=== PATIENT | female | born 2000 | race American Indian/Alaskan Native ===

== ENCOUNTER 2019-06-09 23:34 | Emergency (ER) | payer SELFPAY ==
[2019-06-10 04:55] VITALS: BP 112/72
[2019-06-10] MEDS ORDERED: NORCO 5/325 PO ONE (04:55)
[2019-06-10] MEDS ORDERED: NORCO 5/325 ONE (04:59)
[2019-06-10] MEDS ORDERED: XYLOCAINE 1% MPF 5 mL INFILTRATI ONE (05:13)
[2019-06-10] MEDS ORDERED: CLEOCIN PO ONE (05:13)
[2019-06-10] MEDS ORDERED: ZOFRAN ODT PO ONE (05:13)
--- NOTE | 2019-06-10 06:34 | Emergency Department Report ---
Abscess Boil HPI - HPI Chief Complaint: Skin/Abscess/Foreign Body Stated Complaint: SPIDER BITE Time Seen by Provider: 06/10/19 05:20 Duration: 4 Days Location: Lower Extremity (medial right thigh) Severity: Severe History: Yes Pain, Yes Purulent Drainage, Yes Insect Bite, No Fever, No Numbness, No Foreign Body, No Previous History HPI: Patient is a 18-year-old -Serbian female with no past medical history presents to the ED with complaint of acute onset persistent painful swollen erythematous maculopapular rash with purulent discharge on the medial right thigh for the last 4 days. Patient denies dizziness, fever, chills, nausea, vomiting, numbness and tingling on right leg, chest pain or shortness of breath. Home Medications: Previous Rx's Medication Instructions Recorded Last Taken Type Acetaminophen/Codeine [Tylenol 1 tab PO Q6H PRN #15 tab 06/10/19 Unknown Rx /Codeine # 3 tab] Clindamycin [Clindamycin CAP] 300 mg PO Q8HR #60 capsule 06/10/19 Unknown Rx Ibuprofen [Motrin] 800 mg PO Q8HR PRN #24 tablet 06/10/19 Unknown Rx Ondansetron [Zofran Odt] 4 mg PO Q6HR PRN #15 tab.rapdis 06/10/19 Unknown Rx cephALEXin [Keflex] 500 mg PO Q6HR #40 capsule 06/10/19 Unknown Rx Allergies/Adverse Reactions: Allergies Allergy/AdvReac Type Severity Reaction Status Date / Time Sulfa (Sulfonamide Allergy Anaphylaxis Verified 06/10/19 00:01 Antibiotics) ED Review of Systems ROS: Stated complaint: SPIDER BITE Other details as noted in HPI Constitutional: denies: chills, fever Eyes: denies: eye pain, eye discharge, vision change ENT: denies: ear pain, throat pain Respiratory: denies: cough, shortness of breath, wheezing Cardiovascular: denies: chest pain, palpitations Endocrine: no symptoms reported Gastrointestinal: denies: abdominal pain, nausea, diarrhea Genitourinary: denies: urgency, dysuria, discharge Musculoskeletal: arthralgia, other (painful right medial thigh due to erythematous maculopapular rash). denies: back pain, joint swelling Skin: rash (erythematous maculopapular rash on medial right thigh). denies: lesions Neurological: denies: headache, weakness, paresthesias Psychiatric: denies: anxiety, depression Hematological/Lymphatic: denies: easy bleeding, easy bruising ED Past Medical Hx - Past Medical History Previous Medical History?: Yes Hx Asthma: Yes - Surgical History Past Surgical History?: No - Social History Smoking Status: Never Smoker Substance Use Type: None - Medications Home Medications: Home Medications Medication Instructions Recorded Confirmed Last Taken Type Acetaminophen/Codeine [Tylenol 1 tab PO Q6H PRN #15 tab 06/10/19 Unknown Rx /Codeine # 3 tab] Clindamycin [Clindamycin CAP] 300 mg PO Q8HR #60 capsule 06/10/19 Unknown Rx Ibuprofen [Motrin] 800 mg PO Q8HR PRN #24 tablet 06/10/19 Unknown Rx Ondansetron [Zofran Odt] 4 mg PO Q6HR PRN #15 tab.rapdis 06/10/19 Unknown Rx cephALEXin [Keflex] 500 mg PO Q6HR #40 capsule 06/10/19 Unknown Rx ED Abscess Boil Physical Exam - Exam General: Vital signs noted. No distress. Alert and acting appropriately. Front/Back of Body, Lg (Color): 1 - Erythematous maculopapular rash on medial right thigh purulent discharge and tenderness Size: 2 cm Exam: Yes Tenderness, Yes Fluctuance, Yes Surrounding Cellulites/Erythema, Yes Normal Neurologic Exam, Yes Normal Circulation, No Lymphangitis, No Crepitation, No Heart Murmur I & D Note - I & D Note I & D Note: Right medial thigh with 2 cm circumferential erythematous fluctuant rash. Local anethetic: Lidocaine 1% w/o epi, 5 cc. Betadine used to clean the skin. Wound debrided with Scapel blad size # 11. Wound thoroughly evacuated with copious amount of purulent thick yellow discharge. Wound loculated and debrided thorough with normal saline. Packing gauze used. Wound dressed with 4 x 4 and tegaderm. Patient tolerated procedure well. ED Course Vital Signs 06/09/19 06/10/19 06/10/19 23:53 04:30 04:45 Temperature 98.4 F 98.1 F Pulse Rate 90 74 Respiratory 14 22 20 Rate Blood Pressure 125/63 Blood Pressure 112/72 [Left] O2 Sat by Pulse 99 99 Oximetry - Reevaluation(s) Reevaluation #1: 06/10/19 06:34 Patient is alert and oriented 3 and is not in distress. Patient was treated in the ED and also given initial oral antibiotic in the ED. The right medial thigh abscess was cleaned thoroughly and debrided, determined and cleaned thoroughly. The wound was prepped with sterile 4 x 4 gauze and dressed appropriately with Tegaderm. Patient tolerated procedure well. Patient will discharged home on antibiotics and pain medications and advised to return to the ED immediately if symptoms get worse. Otherwise patient was advised to follow- up with her primary care physician in 7-10 days for reevaluation. Critical care attestation.: If time is entered above; I have spent that time in minutes in the direct care of this critically ill patient, excluding procedure time. ED Medical Decision Making - Medical Decision Making Patient is alert and oriented 3 and is not in distress. Patient was treated in the ED and also given initial oral antibiotic in the ED. The right medial thigh abscess was cleaned thoroughly and debrided, determined and cleaned thoroughly. The wound was prepped with sterile 4 x 4 gauze and dressed appropriately with Tegaderm. Patient tolerated procedure well. Patient will discharged home on antibiotics and pain medications and advised to return to the ED immediately if symptoms get worse. Otherwise patient was advised to follow- up with her primary care physician in 7-10 days for reevaluation. - Differential Diagnosis cellulitis; cutaneous abscess of thigh; acute folliculitis, insect bite ED Disposition Clinical Impression: Acute folliculitis, Cellulitis of left thigh, Abscess of right thigh Disposition: [id number] TO HOME OR SELFCARE Is pt being admited?: No Does the pt Need Aspirin: No Condition: Stable Instructions: Cellulitis (ED), Abscess (ED), Folliculitis (ED) Additional Instructions: Take medications with food, drink plenty of fluids and follow up with your primary care physician in 7-10 days for reevaluation. Return to the ED immediately if symptoms get worse. Prescriptions: Clindamycin [Clindamycin CAP] 300 mg PO Q8HR #60 capsule cephALEXin [Keflex] 500 mg PO Q6HR #40 capsule Ibuprofen [Motrin] 800 mg PO Q8HR PRN #24 tablet PRN Reason: Pain , Severe (7-10) Acetaminophen/Codeine [Tylenol /Codeine # 3 tab] 1 tab PO Q6H PRN #15 tab PRN Reason: Pain , Severe (7-10) Ondansetron [Zofran Odt] 4 mg PO Q6HR PRN #15 tab.rapdis PRN Reason: Nausea Referrals: [facility] [Outside] - 3-5 Days Time of Disposition: 06:36 Print Language: INDONESIAN
== END 2019-06-10 06:45 | disposition home or self-care (01) ==
LOC: ED 23:34
DX: L73.9 Follicular disorder, unspecified (principal); L02.415 Cutaneous abscess of right lower limb; L03.116 Cellulitis of left lower limb; J45.909 Unspecified asthma, uncomplicated
CPT/HCPCS: Q0162